=== PATIENT | female | born 1965 | race Caucasian/White ===

== ENCOUNTER → 2017-12-01 | Outpatient (CLI) | payer BC, OTHER ==
[~2017-12-01] MED LIST: ALBUTEROL INHAL17 GM IH; AZITHROMYCIN 2250 MG; ENDOCET 5-3251 EACH PO; ESTRADIOL 1 MG T1 M1 PO; ESTRADIOL0.5 MG PO; KEFLEX500 MG PO; LEXAPRO 10 MG T10 MG PO; MEDROLDOSEPACK PO; MULTIPLE VITAM1 EAC3 PO; PERCOCET 5-3251 EACH PO; ROBAXIN 750 MG750 M1 PO; VITAMINC500 PO; ZOFRAN ODT4 MG PO; ZYVOX600 MG PO
== END ==
LOC: M.RAD 11:15
DX: Z12.31 Encounter for screening mammogram for malignant neoplasm of breast (principal)

== ENCOUNTER → 2020-04-03 | Outpatient (CLI) | payer OTHER | LOC: M.RAD 11:15 | PROVIDERS: ATTEND Internal Medicine | DX: Z12.31 Encounter for screening mammogram for malignant neoplasm of breast (principal) ==